=== PATIENT | female | born 1970 | race Caucasian/White ===

== ENCOUNTER 2018-10-12 14:55 | Emergency (ER) | payer MEDICAID, OTHER ==
[~2018-10-12] VITALS: Ht 170.2 cm; Wt 75.3 kg
[~2018-10-12 14:55] MED LIST: ALBU8.5H4 IH; ONDA4TAB12 PO; PHEN-786 PO; PRED20TA PO
[2018-10-12 15:11] VITALS: BP 139/88
== END 2018-10-12 16:52 | disposition home or self-care (01) ==
LOC: ER 14:55
DX: M25.561 Pain in right knee (principal); Z79.899 Other long term (current) drug therapy; W03.XXXA Other fall on same level due to collision with another person, initial encounter; Y93.89 Activity, other specified; Y92.331 Roller skating rink as the place of occurrence of the external cause; Y99.8 Other external cause status
CPT/HCPCS: 73560; 99284

== ENCOUNTER 2019-01-31 10:28 | Emergency (ER) | payer OTHER ==
[~2019-01-31] VITALS: Ht 167.6 cm; Wt 72.7 kg
[2019-01-31 10:34] VITALS: BP 160/101
[2019-01-31 11:05] LABS: BASOPHILS # (AUTO) 0.1 X10'3 (0-0.2); BASOPHILS % (AUTO) 1.2 % (0-1); EOSINOPHILS # (AUTO) 0.5 X10'3 (0-0.9); EOSINOPHILS % (AUTO) 8.8 % (0-6); HEMATOCRIT 40.1 % (35.0-45.0); HEMOGLOBIN 13.4 g/dl (12.0-16.0); LYMPHOCYTES # (AUTO) 0.6 X10'3 (1.1-4.8); LYMPHOCYTES % (AUTO) 12.2 % (21-51); MEAN CORPUSCULAR HEMOGLOBIN 31.3 PG (27.0-31.0); MEAN CORPUSCULAR HGB CONC 33.4 g/dL (33.0-36.5); MEAN CORPUSCULAR VOLUME 93.8 FL (78-98); MEAN PLATELET VOLUME 8.7 FL (7.4-10.4); MONOCYTES # (AUTO) 0.4 X10'3 (0-0.9); MONOCYTES % (AUTO) 8.3 % (2-12); NEUTROPHILS # (AUTO) 3.7 X10'3 (1.8-7.7); NEUTROPHILS % (AUTO) 69.5 % (42-75); PLATELET COUNT 295 X10'3 (140-440); RED BLOOD COUNT 4.27 X10'6 (4.20-5.60); RED CELL DISTRIBUTION WIDTH 12.3 % (11.5-14.5); WHITE BLOOD COUNT 5.3 X10'3 (4.5-11.0)
[2019-01-31] MEDS ORDERED: methylPREDNISolone sod succ 125mg/2ml vial IM ONE (11:05)
[2019-01-31] MEDS ORDERED: ipratropium/albuterol 3ml nebule NEB ONE (11:05)
[2019-01-31 11:17] LABS: ALANINE AMINOTRANSFERASE 31 U/L (12-78); ALBUMIN 3.5 G/DL (3.4-5.0); ALBUMIN/GLOBULIN RATIO 0.9 (1.1-1.5); ALKALINE PHOSPHATASE 86 IU/L (46-116); ANION GAP 12 (8-16); ASPARTATE AMINO TRANSFERASE 22 U/L (10-37); BILIRUBIN,TOTAL 0.3 MG/DL (0.1-1.0); BLOOD UREA NITROGEN 7 MG/DL (7-18); BUN/CREATININE RATIO 9.5 (6.6-38.0); CALCIUM 8.6 MG/DL (8.5-10.1); CHLORIDE 104 MMOL/L (99-107); CREATININE 0.74 MG/DL (0.40-0.90); GLUCOSE 117 MG/DL (70-104); POTASSIUM 3.8 MMOL/L (3.5-5.1); SODIUM 140 MMOL/L (135-145); TOTAL CARBON DIOXIDE 24.2 MMOL/L (24-32); TOTAL PROTEIN 7.2 G/DL (6.4-8.2); eGFR 83 ML/MIN
--- NOTE | 2019-01-31 11:32 | NUR ---
Pt. receiving a nebulizer treatment.
--- NOTE | 2019-01-31 11:46 | NUR ---
Warm compress provided to pt's right deltoid as pt. c/o "burning" at injection site. Pt. requesting Sally Crews examine her throat as pt. c/o a sore throat. RN notified [facility] of pt's request.
[2019-01-31] MEDS ORDERED: LEVO500T89 PO (11:49)
[2019-01-31] MEDS ORDERED: METH4TAB3 PO (11:49)
[2019-01-31] MEDS ORDERED: LIDO20SO16 PO (11:51)
[2019-01-31] MEDS ORDERED: FLUO20CA39 PO (19:15)
[2019-01-31] MEDS ORDERED: ALBU18HF2 INH (19:15)
[2019-01-31] MEDS ORDERED: MONT4TAB11 PO (19:15)
[2019-01-31] MEDS ORDERED: ESOM20CA PO (19:15)
[2019-02-02] MEDS ORDERED: PRED10TA23 PO (14:44)
[2019-02-02] MEDS ORDERED: LEVO750T21 PO (14:44)
== END 2019-01-31 12:04 | disposition home or self-care (01) ==
LOC: ER 10:29
DX: J45.909 Unspecified asthma, uncomplicated (principal); R93.89 Abnormal findings on diagnostic imaging of other specified body structures; Z87.442 Personal history of urinary calculi; Z79.899 Other long term (current) drug therapy
CPT/HCPCS: 36415; 71046; 80053; 85025; 93005; 94640; 94760; 96372; 99284; J2930

== ENCOUNTER 2019-01-31 17:39 | Inpatient (IN) | payer MEDICAID, OTHER | END 2019-02-02 17:05 | disposition home or self-care (01) | LOC: SUR 3N 02-01 05:36 → ER 17:39 → SUR 3N 02-01 17:54 | DX: J18.1 Lobar pneumonia, unspecified organism (principal); J45.901 Unspecified asthma with (acute) exacerbation; E87.2 Acidosis; E87.6 Hypokalemia ==

== ENCOUNTER 2021-06-18 09:30 | Outpatient (CLI) | payer OTHER ==
[~2021-06-18] VITALS: Ht 170.2 cm; Wt 70.3 kg
[~2021-06-18 09:30] MED LIST changes: +ALBU18HF2 INH; -ALBU8.5H4 IH; +ESOM20CA PO; +FLUO20CA39 PO; +MONT4TAB18 PO; -ONDA4TAB12 PO; -PHEN-786 PO; -PRED20TA PO
[2021-06-18 10:44] LABS: CLARITY,URINE SLIGHTLY CLOUDY (Clear); COLOR,URINE YELLOW (Yellow); UA COLLECTION TYPE CLN CATCH MIDSTREAM
[2021-06-18 10:45] LABS: GLUCOSE, URINE NEGATIVE (Neg); KETONES,URINE NEGATIVE (Neg); NITRITES, URINE NEGATIVE (Neg); OCCULT BLOOD,URINE NEGATIVE (Neg); PROTEIN,URINE NEGATIVE (Neg)
[2021-06-18 10:46] LABS: LEUKOCYTE ESTERASE ,URINE NEGATIVE (Neg); UROBILINOGEN,URINE 0.2 E.U/dL (0.2-1.0)
[2021-06-18 10:49] LABS: SQUAMOUS EPITHELIAL CELL,UR FEW /LPF (FEW); TRANSITIONAL EPI CELLS,URINE FEW /HPF
[2021-06-18 10:50] LABS: BACTERIA,URINE NONE SEEN /HPF (Neg); RBC,URINE 0-2 /HPF (0-2); WBC,URINE 0-4 /HPF (0-4)
[2021-06-22] MEDS ORDERED: ringers solution, lacted 1,000 ML IV SCH (05:00)
[2021-06-22] MEDS ORDERED: albuterol 2.5 MG/3 ML nebule NEB PRN (05:30)
[2021-06-22] MEDS ORDERED: cefazolin/dext.iso 2gm/100ml IV ONE (05:30)
[2021-06-22] MEDS ORDERED: famotidine 20mg tablet PO ONE (05:30)
== END 2021-06-18 23:59 | disposition home or self-care (01) ==
LOC: PRE-OP 09:30 → EDSTATUS 06-22 07:30
PROVIDERS: ATTEND Podiatrist Foot & Ankle Surgery
DX: Z01.818 Encounter for other preprocedural examination (principal); M19.071 Primary osteoarthritis, right ankle and foot; J45.909 Unspecified asthma, uncomplicated; F41.9 Anxiety disorder, unspecified; Z79.899 Other long term (current) drug therapy; Z98.890 Other specified postprocedural states; Z88.5 Allergy status to narcotic agent; Z88.8 Allergy status to other drugs, medicaments and biological substances; Z72.89 Other problems related to lifestyle; Z82.49 Family history of ischemic heart disease and other diseases of the circulatory system; Z82.3 Family history of stroke
CPT/HCPCS: 36415; 80053; 81001; 85025; J7120; U0003; U0005

== ENCOUNTER 2023-10-01 18:38 | Emergency (ER) | payer MEDICAID, OTHER ==
[~2023-10-01] VITALS: Ht 170.2 cm; Wt 70.4 kg
[~2023-10-01 18:38] MED LIST changes: -ESOM20CA PO; -MONT4TAB18 PO
[2023-10-01 18:44] VITALS: BP 169/92; PULSE 77; RESP 18; TEMP 97.2; O2SAT 97
[2023-10-01] MEDS ORDERED: mag hydrox/Alum hydrox/simeth 30ml oral suspension PO ONE (18:55)
[2023-10-01] MEDS ORDERED: LIDOcaine Viscous 15ml cup MM ONE (18:55)
== END 2023-10-01 19:07 | disposition home or self-care (01) ==
LOC: ER 18:38
DX: K29.00 Acute gastritis without bleeding (principal); J45.909 Unspecified asthma, uncomplicated; Z87.442 Personal history of urinary calculi; Z88.6 Allergy status to analgesic agent; Z88.5 Allergy status to narcotic agent; Z79.899 Other long term (current) drug therapy
CPT/HCPCS: 99283

== ENCOUNTER 2023-10-02 21:01 | Inpatient (IN) | payer MEDICAID ==
[~2023-10-02] VITALS: Ht 170.2 cm; Wt 69.5 kg
[2023-10-02 22:02] LABS: BASOPHILS % (AUTO) 0.5 % (0-1); EOSINOPHILS # (AUTO) 0.3 X10'3 (0-0.9); EOSINOPHILS % (AUTO) 3.9 % (0-6); HEMATOCRIT 38.3 % (35.0-45.0); HEMOGLOBIN 13.3 g/dl (12.0-16.0); LYMPHOCYTES # (AUTO) 2.6 X10'3 (1.1-4.8); LYMPHOCYTES % (AUTO) 38.2 % (21-51); MEAN CORPUSCULAR HEMOGLOBIN 32.4 PG (27.0-31.0); MEAN CORPUSCULAR HGB CONC 34.7 g/dL (33.0-36.5); MEAN CORPUSCULAR VOLUME 93.5 FL (78-98); MEAN PLATELET VOLUME 8.7 FL (7.4-10.4); MONOCYTES # (AUTO) 0.5 X10'3 (0-0.9); MONOCYTES % (AUTO) 6.8 % (2-12); NEUTROPHILS # (AUTO) 3.4 X10'3 (1.8-7.7); NEUTROPHILS % (AUTO) 50.6 % (42-75); PLATELET COUNT 392 X10'3 (140-440); RED CELL DISTRIBUTION WIDTH 12.4 % (11.5-14.5); WHITE BLOOD COUNT 6.7 X10'3 (4.5-11.0)
[2023-10-02 22:12] LABS: ALANINE AMINOTRANSFERASE 26 U/L (12-78); ALBUMIN 3.6 G/DL (3.4-5.0); ALBUMIN/GLOBULIN RATIO 0.9 (1.1-1.5); ALKALINE PHOSPHATASE 58 IU/L (46-116); ANION GAP 11 (8-16); ASPARTATE AMINO TRANSFERASE 14 U/L (10-37); BILIRUBIN,TOTAL 0.2 MG/DL (0.1-1.0); BLOOD UREA NITROGEN 13 MG/DL (7-18); BUN/CREATININE RATIO 17.6 (10.0-20.0); CALCIUM 8.9 MG/DL (8.5-10.1); CHLORIDE 104 MMOL/L (99-107); CREATININE 0.74 MG/DL (0.40-0.90); GLUCOSE 155 MG/DL (70-104); LIPASE 46 U/L (16-77); POTASSIUM 3.3 MMOL/L (3.5-5.1); SODIUM 141 MMOL/L (135-145); TOTAL CARBON DIOXIDE 26.2 MMOL/L (24-32); TOTAL PROTEIN 7.4 G/DL (6.4-8.2); eCRCL 85 ML/MIN; eGFR 82 ML/MIN
[2023-10-03] VITALS (15 sets, daily range): BP systolic 119–177; BP diastolic 64–106; PULSE 74–104; RESP 16–25; TEMP 97.4–98.1; O2SAT 92–100
[2023-10-03] MEDS ORDERED: normal saline 1000ml 1,000 ML IV ONE (01:20)
[2023-10-03] MEDS ORDERED: ondansetron/PF 4mg/2ml inj IV ONE ×2 (01:20→03:50)
[2023-10-03] MEDS ORDERED: morphine 4 MG/ML inj SYRINge IV ONE (01:20)
[2023-10-03 01:28] LABS: BILIRUBIN,URINE NEGATIVE (Neg); CLARITY,URINE CLEAR (Clear); COLOR,URINE YELLOW (Yellow); GLUCOSE, URINE NEGATIVE (Neg); KETONES,URINE 15 mg/dl (Neg); LEUKOCYTE ESTERASE ,URINE NEGATIVE (Neg); NITRITES, URINE NEGATIVE (Neg); OCCULT BLOOD,URINE NEGATIVE (Neg); PH,URINE 8.5 (4.8-8.0); PROTEIN,URINE TRACE mg/dl (Neg)
[2023-10-03 01:33] LABS: UA COLLECTION TYPE CLN CATCH MIDSTREAM
[2023-10-03 01:35] LABS: BACTERIA,URINE 1+ /HPF (Neg); RBC,URINE NONE SEEN /HPF (0-2); SQUAMOUS EPITHELIAL CELL,UR NONE SEEN /LPF (FEW); WBC,URINE 0-4 /HPF (0-4)
[2023-10-03] MEDS ORDERED: fentaNYL/PF 50MCG/1 ML 2ML syringe IV ONE ×2 (02:00→05:10)
[2023-10-03] MEDS ORDERED: HYDROmorphone inj. 0.5 MG/0.5 ML DISP.SYRIN IV ONE ×2 (02:35→03:45)
[2023-10-03] MEDS ORDERED: iohexol 300mg/ml 100ml inj. ONE (03:16)
[2023-10-03] MEDS ORDERED: HYDROmorphone inj. 0.5 MG/0.5 ML DISP.SYRIN IM ONE (03:25)
[2023-10-03] MEDS ORDERED: piperacillin/tazo 4.5gm/100ml 100 ML IV ONE (04:00)
[2023-10-03] MEDS ORDERED: proCHLORperazine 10 MG/2 ml inj IV ONE (04:40)
[2023-10-03] MEDS ORDERED: magnesium hydroxide 30ml (MOM) UD suspension PO PRN (05:05)
[2023-10-03] MEDS ORDERED: acetaminophen 325mg tablet PO PRN (05:05)
[2023-10-03] MEDS ORDERED: HYDROmorphone/PF 0.2 MG/ML SYRINGE IV PRN (05:05)
[2023-10-03] MEDS ORDERED: potassium Cl 20 mEq SR tablet PO PRN (05:05)
[2023-10-03] MEDS ORDERED: magnesium 2GM in 50ml NS 50 ML IV PRN (05:05)
[2023-10-03] MEDS ORDERED: magnesium 4gm in 100ml NS 100 ML IV PRN (05:05)
[2023-10-03] MEDS ORDERED: mag hydrox/Alum hydrox/simeth 30ml oral suspension PO PRN (05:05)
[2023-10-03] MEDS ORDERED: potassium Cl 40MEQ/1/2NS 520ml 520 ML IV PRN (05:05)
[2023-10-03] MEDS ORDERED: magnesium Cl slow-release 64mg tablet PO PRN (05:05)
[2023-10-03] MEDS: dextrose 5%-1/2 normal saline 1,000 ML IV SCH ×3 (05:58→20:40)
[2023-10-03] MEDS ORDERED: ipratropium/albuterol 3ml nebule NEB PRN (06:50)
[2023-10-03] MEDS: docusate sod 100mg capsule PO SCH ×2 (07:21→20:00)
[2023-10-03] MEDS: FLUoxetine 20mg capsule PO SCH (07:21)
[2023-10-03] MEDS: enoxaparin 40mg/0.4ml syringe SUBCUT SCH (07:21)
[2023-10-03] MEDS: pantoprazole 40 MG vial IV SCH (08:10)
[2023-10-03] MEDS: ondansetron/PF 4mg/2ml inj IV PRN ×2 (08:10→19:35)
[2023-10-03] MEDS: HYDROmorphone inj. 0.5 MG/0.5 ML DISP.SYRIN IV PRN ×4 (08:12→23:10)
[2023-10-03] MEDS: K and/or MAG REPLACEMENT MC SCH ×2 (08:16→20:00)
[2023-10-03] MEDS: potassium Cl 20 mEq SR tablet PO PRN (08:16)
[2023-10-03 09:09] LABS: MAGNESIUM 1.8 MG/DL (1.5-2.4); POTASSIUM 3.5 MMOL/L (3.5-5.1)
[2023-10-03] MEDS: piperacillin/tazo 3.375gm/50ml 50 ML IV SCH ×2 (12:57→20:40)
[2023-10-03] MEDS ORDERED: INDOCYANINE GREEN 25 MG/10 ML VIAL IV ONE (15:20)
[2023-10-03] MEDS ORDERED: morphine 4 MG/ML inj SYRINge IV PRN (16:15)
[2023-10-03] MEDS ORDERED: meperidine/PF 25mg/ml syringe IV PRN ×3 (16:15)
[2023-10-03] MEDS ORDERED: morphine 2 MG/ML inj. syringe IV PRN (16:15)
[2023-10-03] MEDS ORDERED: proCHLORperazine 10 MG/2 ml inj IV PRN (16:15)
[2023-10-03] MEDS ORDERED: ringers solution, lacted 1,000 ML IV SCH (16:15)
[2023-10-03] MEDS ORDERED: ondansetron/PF 4mg/2ml inj IV PRN ×2 (16:15→18:10)
[2023-10-03] MEDS ORDERED: BUPIVAcaine 2.5mg/ml inj 50ml vial (contains preservative) ONE (16:24)
[2023-10-03] MEDS ORDERED: midazolam 1 mg/ML 2ml injection ONE (16:46)
[2023-10-03] MEDS ORDERED: fentaNYL/PF 50MCG/1 ML 2ML syringe ONE (16:47)
[2023-10-03] MEDS ORDERED: propofol inj 20 ML IV ONE (16:49)
[2023-10-03] MEDS ORDERED: rocuronium 10mg/ml inj IV ONE (16:56)
[2023-10-03] MEDS ORDERED: ceFOXitin 1000 MG inj ONE ×2 (16:56)
[2023-10-03] MEDS ORDERED: BUPIVAcaine 2.5mg/ml inj 50ml vial (contains preservative) SQ ONE ×2 (17:24→17:57)
[2023-10-03] MEDS ORDERED: ondansetron/PF 4mg/2ml inj ONE (17:56)
[2023-10-03] MEDS ORDERED: dexamethasone sod phosphate 4mg/ml inj. ONE (17:56)
[2023-10-03] MEDS ORDERED: sugammadex 200mg/2ml injection IV ONE (18:05)
[2023-10-03] MEDS ORDERED: naloxone 0.4 mg/ml inj IV PRN (18:10)
[2023-10-03] MEDS ORDERED: ketorolac trometh. 30mg/ml inj. IV SCH (20:00)
[2023-10-03] MEDS ORDERED: HYDROcodone/acetaminophen 5mg/325mg tablet PO PRN (21:35)
[2023-10-03] MEDS: HYDROcodone/acetaminophen 10/325mg tab PO PRN (21:47)
[2023-10-03] MEDS ORDERED: BUDE10.22 INH (21:52)
[2023-10-03] MEDS ORDERED: OMEP40CA21 PO (21:52)
[2023-10-03] MEDS ORDERED: pantoprazole 40mg Tablet.DR PO SCH (23:00)
[2023-10-04] VITALS (13 sets, daily range): BP systolic 102–137; BP diastolic 57–70; PULSE 69–87; RESP 16–18; TEMP 97.5–98.3; O2SAT 91–99
[2023-10-04] MEDS: albuterol 2.5 MG/3 ML nebule NEB SCH ×3 (01:44→20:18)
[2023-10-04] MEDS: HYDROcodone/acetaminophen 10/325mg tab PO PRN ×2 (03:08→07:42)
[2023-10-04] MEDS: piperacillin/tazo 3.375gm/50ml 50 ML IV SCH ×3 (04:54→21:00)
[2023-10-04] MEDS: ondansetron/PF 4mg/2ml inj IV PRN (05:00)
[2023-10-04] MEDS: HYDROmorphone inj. 0.5 MG/0.5 ML DISP.SYRIN IV PRN ×4 (05:00→19:22)
[2023-10-04 05:31] LABS: BASOPHILS % (AUTO) 0 % (0-1); EOSINOPHILS % (AUTO) 0 % (0-6); HEMATOCRIT 35.5 % (35.0-45.0); LYMPHOCYTES # (AUTO) 0.6 X10'3 (1.1-4.8); LYMPHOCYTES % (AUTO) 4.6 % (21-51); MEAN CORPUSCULAR HEMOGLOBIN 31.7 PG (27.0-31.0); MEAN CORPUSCULAR HGB CONC 33.9 g/dL (33.0-36.5); MEAN CORPUSCULAR VOLUME 93.6 FL (78-98); MEAN PLATELET VOLUME 8.7 FL (7.4-10.4); MONOCYTES # (AUTO) 0.9 X10'3 (0-0.9); MONOCYTES % (AUTO) 6.8 % (2-12); NEUTROPHILS # (AUTO) 11.7 X10'3 (1.8-7.7); NEUTROPHILS % (AUTO) 88.6 % (42-75); PLATELET COUNT 321 X10'3 (140-440); RED CELL DISTRIBUTION WIDTH 12.3 % (11.5-14.5); WHITE BLOOD COUNT 13.2 X10'3 (4.5-11.0)
[2023-10-04 05:38] LABS: ALANINE AMINOTRANSFERASE 157 U/L (12-78); ALBUMIN 2.9 G/DL (3.4-5.0); ALBUMIN/GLOBULIN RATIO 0.7 (1.1-1.5); ALKALINE PHOSPHATASE 86 IU/L (46-116); ANION GAP 7 (8-16); ASPARTATE AMINO TRANSFERASE 100 U/L (10-37); BILIRUBIN,TOTAL 0.4 MG/DL (0.1-1.0); BLOOD UREA NITROGEN 6 MG/DL (7-18); BUN/CREATININE RATIO 8.2 (10.0-20.0); CALCIUM 8.4 MG/DL (8.5-10.1); CHLORIDE 102 MMOL/L (99-107); CREATININE 0.73 MG/DL (0.40-0.90); GLUCOSE 179 MG/DL (70-104); POTASSIUM 3.6 MMOL/L (3.5-5.1); SODIUM 137 MMOL/L (135-145); TOTAL CARBON DIOXIDE 28.5 MMOL/L (24-32); TOTAL PROTEIN 6.8 G/DL (6.4-8.2); eCRCL 86 ML/MIN; eGFR 83 ML/MIN
[2023-10-04] MEDS: dextrose 5%-1/2 normal saline 1,000 ML IV SCH ×2 (05:46→21:05)
[2023-10-04] MEDS: pantoprazole 40 MG vial IV SCH (07:39)
[2023-10-04] MEDS: K and/or MAG REPLACEMENT MC SCH ×2 (08:00→20:00)
[2023-10-04] MEDS: docusate sod 100mg capsule PO SCH ×2 (08:00→21:00)
[2023-10-04] MEDS: FLUoxetine 20mg capsule PO SCH (08:00)
[2023-10-04] MEDS: enoxaparin 40mg/0.4ml syringe SUBCUT SCH (08:00)
[2023-10-04] MEDS: budesonide 0.5mg/2ml UD nebule IH SCH ×2 (08:29→20:18)
[2023-10-04] MEDS: OMEPRAZOLE 40 MG PO SCH (14:59)
[2023-10-04] MEDS: HYDROcodone/acetaminophen 5mg/325mg tablet PO SCH ×3 (15:52→21:00)
[2023-10-04] MEDS: normal saline 1000ml 1,000 ML IV SCH (19:00)
[2023-10-05] VITALS (14 sets, daily range): BP systolic 116–126; BP diastolic 62–74; PULSE 64–83; RESP 14–20; TEMP 97.2–98.1; O2SAT 92–97
[2023-10-05] MEDS: albuterol 2.5 MG/3 ML nebule NEB SCH ×4 (03:35→20:03)
[2023-10-05] MEDS: HYDROcodone/acetaminophen 5mg/325mg tablet PO SCH ×6 (03:49→20:34)
[2023-10-05] MEDS: normal saline 1000ml 1,000 ML IV SCH ×2 (03:50→21:36)
[2023-10-05] MEDS: piperacillin/tazo 3.375gm/50ml 50 ML IV SCH ×3 (05:12→20:35)
[2023-10-05] MEDS: HYDROmorphone inj. 0.5 MG/0.5 ML DISP.SYRIN IV PRN (05:13)
[2023-10-05 05:41] LABS: BASOPHILS % (AUTO) 0.2 % (0-1); EOSINOPHILS # (AUTO) 0.1 X10'3 (0-0.9); EOSINOPHILS % (AUTO) 0.9 % (0-6); HEMATOCRIT 32.4 % (35.0-45.0); HEMOGLOBIN 10.9 g/dl (12.0-16.0); LYMPHOCYTES # (AUTO) 1.5 X10'3 (1.1-4.8); LYMPHOCYTES % (AUTO) 26.3 % (21-51); MEAN CORPUSCULAR HGB CONC 33.7 g/dL (33.0-36.5); MEAN CORPUSCULAR VOLUME 94.8 FL (78-98); MEAN PLATELET VOLUME 8.6 FL (7.4-10.4); MONOCYTES # (AUTO) 0.5 X10'3 (0-0.9); MONOCYTES % (AUTO) 7.9 % (2-12); NEUTROPHILS # (AUTO) 3.8 X10'3 (1.8-7.7); NEUTROPHILS % (AUTO) 64.7 % (42-75); PLATELET COUNT 256 X10'3 (140-440); RED BLOOD COUNT 3.41 X10'6 (4.20-5.60); RED CELL DISTRIBUTION WIDTH 12.5 % (11.5-14.5); WHITE BLOOD COUNT 5.8 X10'3 (4.5-11.0)
[2023-10-05 05:54] LABS: ALANINE AMINOTRANSFERASE 110 U/L (12-78); ALBUMIN 2.5 G/DL (3.4-5.0); ALBUMIN/GLOBULIN RATIO 0.7 (1.1-1.5); ALKALINE PHOSPHATASE 72 IU/L (46-116); ANION GAP 7 (8-16); ASPARTATE AMINO TRANSFERASE 45 U/L (10-37); BILIRUBIN,TOTAL 0.3 MG/DL (0.1-1.0); BLOOD UREA NITROGEN 4 MG/DL (7-18); BUN/CREATININE RATIO 6.2 (10.0-20.0); CALCIUM 8.3 MG/DL (8.5-10.1); CHLORIDE 106 MMOL/L (99-107); CREATININE 0.65 MG/DL (0.40-0.90); GLUCOSE 99 MG/DL (70-104); SODIUM 142 MMOL/L (135-145); TOTAL CARBON DIOXIDE 29.4 MMOL/L (24-32); TOTAL PROTEIN 6.1 G/DL (6.4-8.2); eCRCL 96 ML/MIN; eGFR > 90 ML/MIN
[2023-10-05] MEDS: budesonide 0.5mg/2ml UD nebule IH SCH ×2 (07:59→20:03)
[2023-10-05] MEDS ORDERED: non-formulary drug (Omeprazole (Prilosec) 1 CAP) PO SCH (08:00)
[2023-10-05] MEDS: K and/or MAG REPLACEMENT MC SCH ×2 (08:00→20:34)
[2023-10-05] MEDS: HYDROcodone/acetaminophen 10/325mg tab PO PRN (09:43)
[2023-10-05] MEDS: pantoprazole 40 MG vial IV SCH (09:43)
[2023-10-05] MEDS: docusate sod 100mg capsule PO SCH ×2 (09:44→20:34)
[2023-10-05] MEDS: potassium Cl 20 mEq SR tablet PO PRN ×3 (09:44→20:33)
[2023-10-05] MEDS: FLUoxetine 20mg capsule PO SCH (09:45)
[2023-10-05] MEDS: enoxaparin 40mg/0.4ml syringe SUBCUT SCH (09:45)
[2023-10-05] MEDS: ondansetron/PF 4mg/2ml inj IV PRN (10:03)
[2023-10-05] MEDS: metoclopramide 5 mg/ml inj IV PRN ×2 (12:31→18:17)
[2023-10-05] MEDS: OMEPRAZOLE 40 MG PO SCH (17:21)
[2023-10-05] MEDS: dextrose 5%-1/2 normal saline 1,000 ML IV SCH ×2 (19:00→23:11)
[2023-10-06] VITALS (10 sets, daily range): BP systolic 122–144; BP diastolic 41–73; PULSE 57–75; RESP 14–16; TEMP 97.6–98.6; O2SAT 94–98
[2023-10-06] MEDS: albuterol 2.5 MG/3 ML nebule NEB SCH ×2 (03:17→07:47)
[2023-10-06] MEDS: piperacillin/tazo 3.375gm/50ml 50 ML IV SCH ×2 (04:26→13:00)
[2023-10-06] MEDS: HYDROcodone/acetaminophen 5mg/325mg tablet PO SCH ×4 (04:26→12:17)
[2023-10-06 06:17] LABS: ALANINE AMINOTRANSFERASE 110 U/L (12-78); ALBUMIN 2.4 G/DL (3.4-5.0); ALBUMIN/GLOBULIN RATIO 0.6 (1.1-1.5); ALKALINE PHOSPHATASE 96 IU/L (46-116); ANION GAP 4 (8-16); ASPARTATE AMINO TRANSFERASE 60 U/L (10-37); BILIRUBIN,TOTAL 0.3 MG/DL (0.1-1.0); BLOOD UREA NITROGEN 5 MG/DL (7-18); BUN/CREATININE RATIO 7.2 (10.0-20.0); CALCIUM 8.5 MG/DL (8.5-10.1); CHLORIDE 106 MMOL/L (99-107); CREATININE 0.69 MG/DL (0.40-0.90); GLUCOSE 86 MG/DL (70-104); MAGNESIUM 1.9 MG/DL (1.5-2.4); POTASSIUM 3.5 MMOL/L (3.5-5.1); SODIUM 141 MMOL/L (135-145); TOTAL CARBON DIOXIDE 30.8 MMOL/L (24-32); TOTAL PROTEIN 6.1 G/DL (6.4-8.2); eCRCL 91 ML/MIN; eGFR 89 ML/MIN
[2023-10-06 06:21] LABS: BASOPHILS % (AUTO) 0.9 % (0-1); EOSINOPHILS # (AUTO) 0.2 X10'3 (0-0.9); EOSINOPHILS % (AUTO) 2.7 % (0-6); HEMATOCRIT 32.9 % (35.0-45.0); HEMOGLOBIN 11.1 g/dl (12.0-16.0); LYMPHOCYTES # (AUTO) 1.4 X10'3 (1.1-4.8); LYMPHOCYTES % (AUTO) 23.9 % (21-51); MEAN CORPUSCULAR HEMOGLOBIN 31.7 PG (27.0-31.0); MEAN CORPUSCULAR HGB CONC 33.7 g/dL (33.0-36.5); MEAN CORPUSCULAR VOLUME 94.1 FL (78-98); MEAN PLATELET VOLUME 8.2 FL (7.4-10.4); MONOCYTES # (AUTO) 0.3 X10'3 (0-0.9); MONOCYTES % (AUTO) 5.7 % (2-12); NEUTROPHILS # (AUTO) 3.8 X10'3 (1.8-7.7); NEUTROPHILS % (AUTO) 66.8 % (42-75); PLATELET COUNT 328 X10'3 (140-440); RED CELL DISTRIBUTION WIDTH 12.1 % (11.5-14.5); WHITE BLOOD COUNT 5.7 X10'3 (4.5-11.0)
[2023-10-06] MEDS: budesonide 0.5mg/2ml UD nebule IH SCH (07:47)
[2023-10-06] MEDS: K and/or MAG REPLACEMENT MC SCH (08:00)
[2023-10-06] MEDS: enoxaparin 40mg/0.4ml syringe SUBCUT SCH (08:00)
[2023-10-06] MEDS: pantoprazole 40 MG vial IV SCH (08:41)
[2023-10-06] MEDS: FLUoxetine 20mg capsule PO SCH (08:41)
[2023-10-06] MEDS: docusate sod 100mg capsule PO SCH (08:41)
[2023-10-06] MEDS: normal saline 1000ml 1,000 ML IV SCH (08:48)
[2023-10-06] MEDS: OMEPRAZOLE 40 MG PO SCH (10:03)
[2023-10-06] MEDS ORDERED: HYDR-3964 PO ×2 (10:13)
[2023-10-06] MEDS ORDERED: HYDR-3965 PO (15:34)
== END 2023-10-06 15:20 | disposition home or self-care (01) | DRG 263 ==
LOC: ER 21:02 → ED HOLD 10-03 05:04 → ORTHO 4S 10-03 09:40
PROVIDERS: ADMIT Internal Medicine; ATTEND Internal Medicine
PROC: 8E0W4CZ Robotic Assisted Procedure of Trunk Region, Percutaneous Endoscopic Approach (ICD-10-PCS; 2023-10-03)
PROC: BW211ZZ Computerized Tomography (CT Scan) of Abdomen and Pelvis using Low Osmolar Contrast (ICD-10-PCS; 2023-10-03)
PROC: 0FT44ZZ Resection of Gallbladder, Percutaneous Endoscopic Approach (ICD-10-PCS; principal; 2023-10-03 16:42)
DX: K80.00 Calculus of gallbladder with acute cholecystitis without obstruction (principal); K82.A1 Gangrene of gallbladder in cholecystitis; F41.9 Anxiety disorder, unspecified; J45.909 Unspecified asthma, uncomplicated; K21.9 Gastro-esophageal reflux disease without esophagitis; K82.8 Other specified diseases of gallbladder; Z79.51 Long term (current) use of inhaled steroids; Z82.49 Family history of ischemic heart disease and other diseases of the circulatory system; Z87.442 Personal history of urinary calculi; Z79.899 Other long term (current) drug therapy
CPT/HCPCS: 36415; 74177; 76700; 80053; 81001; 83690; 83735; 84132; 85025; 87081; 94640; 94760; 99285; A4215; A4615; A4618; A6258; A7000; C9113; G0378; J0694; J0780; J1100; J1170; J1650; J2250; J2270; J2405; J2543; J2704; J2765; J3010; J3490; J7030; J7120; Q9967